=== PATIENT | female | born 1995 | race Caucasian/White ===

== ENCOUNTER → 2017-08-04 | Outpatient (CLI) | payer OTHER | END | disposition home or self-care (01) | LOC: CFH 16:54 | PROVIDERS: ATTEND Nurse Practitioner Primary Care | DX: N63.10 Unspecified lump in the right breast, unspecified quadrant (principal); N64.4 Mastodynia; R22.9 Localized swelling, mass and lump, unspecified; R53.83 Other fatigue; K58.9 Irritable bowel syndrome, unspecified; F06.4 Anxiety disorder due to known physiological condition; F06.31 Mood disorder due to known physiological condition with depressive features; E55.9 Vitamin D deficiency, unspecified; G47.00 Insomnia, unspecified; Z83.2 Family history of diseases of the blood and blood-forming organs and certain disorders involving the immune mechanism | CPT/HCPCS: 71046 ==

== ENCOUNTER → 2017-08-24 | Outpatient (CLI) | payer OTHER | END | disposition home or self-care (01) | LOC: CFH 12:54 | PROVIDERS: ATTEND Nurse Practitioner Primary Care | DX: N63.10 Unspecified lump in the right breast, unspecified quadrant (principal); N64.4 Mastodynia ==